=== PATIENT | male | born 1980 | race Caucasian/White ===

== ENCOUNTER 2018-01-04 14:10 | Observation (INO) ==
[2018-01-04] MEDS ORDERED: PROMETHAZINE 25 MG/1 ML VIAL IV STA (15:40)
[2018-01-04] MEDS ORDERED: SODIUM CHLORIDE 0.9% 1,000 ML IV STA (15:40)
[2018-01-04] MEDS ORDERED: PANTOPRAZOLE 40 MG VIAL IV STA (15:41)
[2018-01-04 16:22] LABS: Basophils % 0.3 % (0.0-0.8); Hematocrit 38.4 VOL% (42.0-52.0); Hemoglobin 12.5 GM/DL (14.0-18.0); Immature Granulocytes % 0.6 %; Immature Granulocytes Absolute 0.07 #; Lymphocytes # 0.5 10*3/uL (1.4-4.0); Lymphocytes % 4.9 % (21.2-54.2); Mean Corpuscular HGB Conc 32.6 GM/DL (32-36); Mean Corpuscular Hemoglobin 26 PG (27-34); Mean Corpuscular Volume 80.5 FL (87-102); Monocytes # 0.4 10*3/uL (0.11-0.8); Monocytes % 3.2 % (1.7-12.7); Platelet Count 191 T/CUMM (130-400); Red Blood Count 4.77 MC/CUMM (3.8-5.5); Red Cell Distribution Width 19.4 % (9.3-17.3)
[2018-01-04 16:48] LABS: Alanine Aminotransferase 22 U/L (16-61); Albumin 1.8 G/DL (3.4-5.0); Alkaline Phosphatase 272 U/L (45-117); Aspartate Amino Transferase 57 U/L (0-37); Blood Urea Nitrogen 15 MG/DL (7-18); Glucose 113 MG/DL (74-106); Sodium 136 MMOL/L (136-145); Total Protein 6.2 G/DL (6.4-8.3)
[2018-01-04 17:08] LABS: Band Neutrophils 10 % (0-10); Lymphocytes 5 % (20-55); Segmented Neutrophils 81 % (50-85); Total Cells Counted 100
[2018-01-04] MEDS ORDERED: LORazepam 2 MG/1 ML VIAL IV PRN (17:20)
[2018-01-04] MEDS ORDERED: MORPHINE 10 MG/5 ML UDCUP PO PRN (17:23)
[2018-01-04] MEDS ORDERED: ONDANSETRON 4 MG/2 ML VIAL IV PRN (17:26)
[2018-01-04] MEDS ORDERED: fentaNYL 75 MCG/HR PATCH TRANSDERM SCH (17:30)
[2018-01-04] MEDS: SODIUM CHLOR 0.9% KCL 40 MEQ 40 MEQ/1,000 ML BAG IV SCH (17:52)
[2018-01-04] MEDS ORDERED: SCOPOLAMINE 1.5 MG PATCH TRANSDERM SCH (18:30)
[2018-01-04] MEDS ORDERED: MAGNESIUM SULF RIDER 2 GM in PREMIX 1 EACH IV ONE (18:50)
[2018-01-05] MEDS: MORPHINE 4 MG/1 ML VIAL IV PRN ×2 (00:23→07:37)
[2018-01-05] MEDS: PROMETHAZINE INJ 25 MG in SODIUM CHLORIDE 0.9% 50 ML IV PRN ×2 (00:29→09:58)
[2018-01-05] MEDS: POTASSIUM CHLORIDE RIDER 10 MEQ in PREMIX 1 EACH IV PRN ×2 (03:10→05:42)
[2018-01-05 06:10] LABS: Potassium 1.7 MMOL/L (3.5-5.1)
[2018-01-05] MEDS: SODIUM CHLOR 0.9% KCL 40 MEQ 40 MEQ/1,000 ML BAG IV SCH ×2 (07:42→11:06)
[2018-01-05 08:42] VITALS: BP 104/71
== END 2018-01-05 12:40 | disposition hospice, home (50) ==
LOC: N.EDINP 14:10 → N.ED 14:10 → N.4E 17:23
PROVIDERS: ADMIT Internal Medicine; ATTEND Internal Medicine

== ENCOUNTER 2018-01-08 09:42 | Observation (INO) ==
[2018-01-08] MEDS ORDERED: PROMETHAZINE 25 MG/1 ML VIAL ONE ×2 (11:33→15:38)
[2018-01-08] MEDS ORDERED: diphenhydrAMINE 50 MG/1 ML VIAL IV PRN (11:52)
[2018-01-08] MEDS ORDERED: HALOPERIDOL 5 MG/ML AMP IV PRN (11:53)
[2018-01-08] MEDS: PROMETHAZINE INJ 12.5 MG in SODIUM CHLORIDE 0.9% 50 ML IV PRN ×2 (12:08→15:42)
[2018-01-08] MEDS: HYDROmorphone 2 MG/1 ML VIAL IV PRN ×3 (12:35→18:37)
[2018-01-08] MEDS: LORazepam 2 MG/1 ML VIAL IV PRN ×2 (12:35→17:00)
[2018-01-08] MEDS ORDERED: MORPHINE 10 MG/5 ML UDCUP PO PRN (20:39)
[2018-01-08] MEDS ORDERED: PROMETHAZINE 25 MG SUPP RECTAL PRN (21:00)
[2018-01-08] MEDS ORDERED: NON-FORMULARY MEDICATION (Lorazepam [Lorazepam Intensol] 2 MG) PO SCH (21:00)
[2018-01-08] MEDS ORDERED: SCOPOLAMINE 1.5 MG PATCH TRANSDERM SCH (21:00)
[2018-01-08] MEDS ORDERED: ACETAMINOPHEN 650 MG SUPP RECTAL PRN (21:00)
[2018-01-11] MEDS ORDERED: fentaNYL 75 MCG/HR PATCH TRANSDERM SCH (09:00)
== END 2018-01-08 21:13 | disposition expired ==
LOC: SUATTDRO 11:09 → N.4E 11:09 → INTOOBSV 11:09
PROVIDERS: ADMIT Internal Medicine; ATTEND Internal Medicine